=== PATIENT | female | born 1940 | race Caucasian/White ===

== ENCOUNTER 2017-12-08 16:55 | Inpatient (IN) | payer MEDICARE, OTHER ==
[~2017-12-08] VITALS: Ht 172.7 cm; Wt 105.0 kg
[~2017-12-08 16:55] MED LIST: ALENDRONATE SOD70 MG PO; AMLODIPINE BESYL5 MG PO; ATORVASTATIN CA20 MG PO; ELIQUIS PO; FENOFIBRATE145 MG PO; FISH OIL OMEGA1 EACH PO; FLECAINIDE ACE100 MG PO; HYDROCHLOROTHIA25 MG PO; LISINOPRIL10 MG PO; METOPROLOL SUCC50 MG PO; MULTI-VITAMIN1 EACH PO
[2017-12-08] MEDS ORDERED: PHENYLEPHRINE HCL 1% 10 MG/ML VIAL ONE (16:58)
[2017-12-08 17:00] VITALS: BP 167/74
[2017-12-08] MEDS ORDERED: ONDANSETRON HCL INJ 2 MG/ML VIAL IV PRN (17:15)
[2017-12-08] MEDS ORDERED: HYDROCODONE/APAP 10MG-325MG TAB PO PRN (17:15)
[2017-12-08 17:17] VITALS: BP 167/74
[2017-12-08] MEDS ORDERED: KETOROLAC TROMETHAMINE 30 MG/ML VIAL IV PRN (18:00)
[2017-12-08] MEDS: METOPROLOL SUCCINATE 50 MG TAB XL PO SCH (18:30)
[2017-12-08] MEDS: HYDROCODONE/APAP 10MG-325MG TAB PO SCH ×2 (18:30→22:00)
[2017-12-08] MEDS: FLECAINIDE ACETATE 100 MG TAB PO SCH (18:30)
[2017-12-08] MEDS ORDERED: CEFAZOLIN SOD 1 GM/D5W 50ML 100 ML IV ONE (18:45)
[2017-12-08] MEDS ORDERED: CEFAZOLIN SOD 1 GM VIAL IV NR ×2 (18:45→19:00)
[2017-12-08 20:08] VITALS: BP 170/71
[2017-12-08] MEDS: ATORVASTATIN 20 MG TAB PO SCH (21:00)
[2017-12-08] MEDS: SODIUM CHLORIDE 0.9% 1000ML 1,000 ML IV SCH (23:59)
[2017-12-09] VITALS: BP 161/68
[2017-12-09] MEDS: HYDROCODONE/APAP 10MG-325MG TAB PO SCH ×2 (02:00→06:00)
[2017-12-09 04:00] VITALS: BP 169/72
[2017-12-09] MEDS: OMEGA 3 POLYUNSAT FATTY ACIDS 1000 MG SOFTGEL PO SCH (08:14)
[2017-12-09] MEDS: MULTIVITAMINS/MINERALS TAB PO SCH (08:14)
[2017-12-09] MEDS: FENOFIBRATE 145 MG TAB PO SCH (08:14)
[2017-12-09] MEDS: FLECAINIDE ACETATE 100 MG TAB PO SCH ×2 (08:16→17:51)
[2017-12-09] MEDS: METOPROLOL SUCCINATE 50 MG TAB XL PO SCH ×2 (08:35→17:51)
[2017-12-09] MEDS: AMLODIPINE BESYLATE 5 MG TAB PO SCH (08:35)
[2017-12-09] MEDS: LISINOPRIL 10 MG TAB PO SCH (08:35)
[2017-12-09 08:52] VITALS: BP 180/77
--- NOTE | 2017-12-09 08:54 | History and Physical ---
PRIMARY CARE PHYSICIAN: Dr. Ashley Cassidy CONSULTANTS: Dr. Ian Joshua CHIEF COMPLAINT: Status post fall with left femur fracture. HISTORY OF PRESENT ILLNESS: This 77-year-old female now came in with left femur fracture. It appears she had left femur open reduction and internal fixation previously recently in late October with Dr. Ian Joshua. Now, the patient is having recurrent pain to the left hip after she fell. The patient is otherwise stable. She is pending for surgical intervention. PAST MEDICAL HISTORY: Osteoarthritis, osteoporosis, hypertension, cardiac arrhythmia, dyslipidemia. PAST SURGICAL HISTORY: Left hip ORIF in November 29, 2017. SOCIAL HISTORY: The patient does not smoke or use alcohol. No recreational drugs. ALLERGIES: MULTAQ AND NIACIN. HOME MEDICATIONS: List has been reviewed. REVIEW OF SYSTEMS: Left hip pain. PHYSICAL EXAMINATION VITAL SIGNS: Temperature is 98, blood pressure 159/72, pulse rate 68, respirations 18. GENERAL: The patient is not in acute distress. She is awake. HEENT: Normocephalic, atraumatic and anicteric. NECK: Supple grossly. PULMONARY: Clear. CARDIOVASCULAR: Regular rate and rhythm. ABDOMEN: Soft. EXTREMITIES: No cyanosis or edema. NEUROLOGIC: No focal deficit. LABORATORY: Otherwise unremarkable. IMPRESSION 1. Left femur fracture with recurrent fall. 2. Multiple chronic baseline medical problems. PLAN: Surgical intervention today with Dr. Ian Joshua. The patient may need hip replacement. The patient is otherwise stable at this time, awaiting surgery. Job#: [id number]
[2017-12-09] MEDS ORDERED: HYDROCHLOROTHIAZIDE 25 MG TAB PO SCH (09:00)
[2017-12-09] MEDS: SODIUM CHLORIDE 0.9% 1000ML 1,000 ML IV SCH ×3 (09:43→23:49)
[2017-12-09 11:58] VITALS: BP 171/77
[2017-12-09] MEDS ORDERED: BACITRACIN 50,000 UNIT VIAL ONE (11:58)
[2017-12-09] MEDS ORDERED: CEFAZOLIN SOD 2 GM/D5W 50ML 50 ML IV ONE (12:32)
[2017-12-09] MEDS ORDERED: ACETAMINOPHEN 1000 MG/100 ML 100 ML IV ONE (15:23)
[2017-12-09] MEDS ORDERED: ACETAMINOPHEN 1000 MG/100 ML IV PRN (15:30)
[2017-12-09] MEDS ORDERED: HYDROMORPHONE 0.2MG/ML-SOD CHL 30ML PCA SYRINGE IV PRN (15:30)
[2017-12-09] MEDS ORDERED: NALOXONE HCL INJ 0.4 MG/ML AMP IV PRN (15:30)
[2017-12-09] MEDS ORDERED: HYDROMORPHONE 0.2MG/ML-SOD CHL 30ML PCA SYRINGE IV ONE (16:01)
--- NOTE | 2017-12-09 17:05 | Diagnostic Imaging Report ---
PELVIS AP 1-2 VIEWS - 1 view HISTORY: Pain COMPARISON: 11/28/2017 FINDINGS: See impression. IMPRESSION: Status post plate and screw and nail fixation of left femoral head and proximal shaft with expected postoperative changes, marked by soft tissue swelling, minimal emphysema, and skin steph. Intact hardware. Signed by: Dr. Sage Ying MD on 12/09/2017 5:01 PM
--- NOTE | 2017-12-09 17:08 | Diagnostic Imaging Report ---
HIP LEFT ONE VIEW (+/- PELVIS) - 1 view HISTORY: Pain COMPARISON: 11/28/2017 FINDINGS: See impression. IMPRESSION: ORIF of proximal left femoral fracture with plate and screw and nail fixation of left femoral head and proximal shaft. There are expected postoperative changes, marked by soft tissue swelling, minimal emphysema, and skin steph. Intact hardware. Signed by: Dr. Sage Ying MD on 12/09/2017 5:04 PM
[2017-12-09] MEDS ORDERED: FENTANYL CITRATE/PF 100MCG/2 ML INJ ONE (18:11)
[2017-12-09] MEDS ORDERED: MIDAZOLAM HCL 2 MG/2 ML VIAL ONE (18:11)
[2017-12-09 18:12] VITALS: BP 152/69
[2017-12-09] MEDS ORDERED: EPHEDRINE SULFATE INJ 50 MG/10 ML SYR ONE (18:24)
[2017-12-09] MEDS ORDERED: SEVOFLURANE INHAL SOLN 250 ML PEN BTL ONE (18:24)
[2017-12-09] MEDS ORDERED: ONDANSETRON HCL INJ 2 MG/ML VIAL ONE (18:24)
[2017-12-09] MEDS ORDERED: SUCCINYLCHOLINE 200 MG/10 ML SYR ONE (18:24)
[2017-12-09] MEDS ORDERED: PROPOFOL IV EMULSION 10 MG/ML 20 ML VIAL ONE (18:24)
[2017-12-09] MEDS ORDERED: ATROPINE SULFATE 1 MG/ML VIAL ONE (18:24)
[2017-12-09] MEDS ORDERED: GLYCOPYRROLATE INJ 1MG/ 5 ML SYR ONE (18:24)
[2017-12-09] MEDS ORDERED: LIDOCAINE HCL 2% LOCAL INJ 5 ML SDV VIAL INJ ONE (18:24)
[2017-12-09] MEDS ORDERED: DEXAMETHASONE SOD PHOS INJ 4 MG/ML VIAL ONE (18:24)
[2017-12-09 20:00] VITALS: BP 146/65
[2017-12-09] MEDS: ATORVASTATIN 20 MG TAB PO SCH (21:48)
[2017-12-09] MEDS: CEFAZOLIN SOD 1 GM VIAL IV SCH (21:49)
[2017-12-09] MEDS ORDERED: CEFAZOLIN SOD 1 GM/D5W 50ML 50 ML IV SCH (22:00)
[2017-12-10] VITALS (8 sets, daily range): BP systolic 126–156; BP diastolic 58–70
[2017-12-10] MEDS: SODIUM CHLORIDE 0.9% 1000ML 1,000 ML IV SCH (03:30)
[2017-12-10 05:53] LABS: BASOPHILS % 0.1 % (0.0-1.0); HEMATOCRIT 31.4 % (34.2-44.1); HEMOGLOBIN 9.9 g/dL (12.0-16.0); LYMPHOCYTES # (AUTO) 1.8 (1.0-3.2); LYMPHOCYTES % 12.1 % (18.0-39.1); MEAN CORPUSCULAR HEMOGLOBIN 29.5 pg (28-32); MEAN CORPUSCULAR HGB CONC 31.5 g/dL (31-35); MEAN CORPUSCULAR VOLUME 93.5 fL (81-99); MONOCYTES # (AUTO) 1.4 (0.2-0.8); MONOCYTES % 9.8 % (4.4-11.3); NEUTROPHILS # (AUTO) 11.3 (2.1-6.9); NEUTROPHILS % 77.1 % (38.7-80.0); PLATELET COUNT 335 x10e3/uL (140-360); RED BLOOD COUNT 3.36 x10e6/uL (3.6-5.1); RED CELL DISTRIBUTION WIDTH 15.5 % (11.7-14.4)
[2017-12-10 06:09] LABS: ANION GAP 12.2 mmol/L (8-16); BLOOD UREA NITROGEN 12 mg/dL (7-26); BUN/CREATININE RATIO 18 (6-25); CALCIUM 8.5 mg/dL (8.4-10.2); CARBON DIOXIDE 23 mmol/L (22-29); CHLORIDE 107 mmol/L (98-107); CREATININE, SERUM 0.66 mg/dL (0.57-1.11); EST GLOMERULAR FILTRATION RATE > 60 ML/MIN (60-); GLUCOSE 165 mg/dL (74-118); POTASSIUM 4.2 mmol/L (3.5-5.1); SODIUM 138 mmol/L (136-145)
[2017-12-10] MEDS: RIVAROXABAN 10 MG TABLET PO SCH (06:20)
[2017-12-10] MEDS: CEFAZOLIN SOD 1 GM VIAL IV SCH ×2 (06:20→13:25)
[2017-12-10] MEDS: MULTIVITAMINS/MINERALS TAB PO SCH (08:59)
[2017-12-10] MEDS: LISINOPRIL 10 MG TAB PO SCH (08:59)
[2017-12-10] MEDS: FLECAINIDE ACETATE 100 MG TAB PO SCH ×2 (08:59→16:23)
[2017-12-10] MEDS: AMLODIPINE BESYLATE 5 MG TAB PO SCH (08:59)
[2017-12-10] MEDS: OMEGA 3 POLYUNSAT FATTY ACIDS 1000 MG SOFTGEL PO SCH (08:59)
[2017-12-10] MEDS: FENOFIBRATE 145 MG TAB PO SCH (09:00)
[2017-12-10] MEDS: METOPROLOL SUCCINATE 50 MG TAB XL PO SCH ×2 (09:00→16:23)
[2017-12-10] MEDS ORDERED: HYDROMORPHONE 1MG/1ML INJ IV PRN (09:00)
[2017-12-10] MEDS ORDERED: HYDROCODONE/APAP 7.5MG-325MG 1 EA TAB PO PRN (09:00)
[2017-12-10] MEDS: SENNOSIDES 8.6 MG TAB PO SCH ×2 (09:11→16:23)
[2017-12-10] MEDS: HYDROCODONE/APAP 10MG-325MG TAB PO PRN ×2 (13:21→17:36)
--- NOTE | 2017-12-10 18:47 | Operative Report ---
DATE OF PROCEDURE: December 09, 2017 PREOPERATIVE DIAGNOSIS: Left subtrochanteric femur fracture. POSTOPERATIVE DIAGNOSIS: Left subtrochanteric femur fracture. PROCEDURES PERFORMED: Patient underwent a 1. Removal of hardware from the left hip. 2. Open reduction and internal fixation of a left subtrochanteric femur fracture. 3. Allograft bone grafting of a left subtrochanteric femur fracture. MEDICAL ACCOUNTING CLERK: None. ANESTHESIA: General endotracheal intubation anesthesia. IV FLUIDS: As per the anesthesia record. COMPLICATIONS: None. DESCRIPTION OF PROCEDURE: Ms. Garcia was taken to the operating room and placed on the fracture table. Following induction of general anesthesia as well as endotracheal intubation, the patient's left lower extremity was examined under anesthesia. She was found to have a well-healed incision over the left hip joint. The patient's left lower extremity was placed in well-padded longitudinal traction, and the right lower extremity was placed in a well-padded lithotomy position. Fluoroscopic evaluation of the hip joint demonstrated a fracture that began in the intertrochanteric region of the left hip and extended into the subtrochanteric region of the left hip. Patient's lower extremity was prepped and draped in standard surgical fashion. The case was begun by extending the previous surgical incision both proximally and distally. This incision was carried through the skin only. Blunt dissection was used to deepen the incision to the level of the tensor fascia elisabet. The tensor fascia elisabet was then incised in line with the skin incision. The underlying vastus lateralis was elevated anteriorly. This exposed the patient's fracture. The patient's hardware was removed. This included three 7.3 cannulated screws with the washers. The fracture site was then copiously irrigated. A guide pin from the 95-degree collar screw and side plate was placed over the tip of the trochanter and advanced from lateral to medial through the neck into the head of the femur. The position of the screw was checked fluoroscopically and found to be appropriate. Measurements were taken, and a reamer was used to create a channel for the implant. The implant was then inserted without difficulty. The plate was affixed to the patient's femur, and the fracture was held in a reduced position while a Neola clamp was used to provisionally hold the plate to the femur and maintain alignment of the fracture. Fluoroscopic evaluation of the patient's injury demonstrated comminution at the level of the patient's fracture site but otherwise acceptable reduction of the patient's injury. The plate was found to be slightly obliquely oriented on the femur. The plate was affixed to the femur, and compression was placed across the patient's fracture site. This resulted in excellent compression at the level of the injury and, under direct visualization, appropriate alignment of the injury. Fluoroscopic evaluation again demonstrated stabilization of the injury with a slight oblique positioning of the plate. The wound was copiously irrigated. Allograft bone graft was placed about the fracture site. The wound was then closed in a multilayer fashion. Sterile dressings were then applied, and the patient was then awakened and taken to the postanesthesia care unit in stable condition. Job#: [id number] EV
[2017-12-10] MEDS: ATORVASTATIN 20 MG TAB PO SCH (20:59)
[2017-12-11] VITALS: BP 164/72
[2017-12-11] MEDS: ACETAMINOPHEN 325 MG TAB PO PRN ×2 (02:06→18:27)
[2017-12-11 04:00] VITALS: BP 146/65
[2017-12-11] MEDS: RIVAROXABAN 10 MG TABLET PO SCH (05:03)
[2017-12-11 05:26] LABS: BASOPHILS % 0.2 % (0.0-1.0); EOSINOPHILS # (AUTO) 0.1 (0.0-0.4); HEMATOCRIT 27.1 % (34.2-44.1); HEMOGLOBIN 8.8 g/dL (12.0-16.0); LYMPHOCYTES # (AUTO) 2.1 (1.0-3.2); LYMPHOCYTES % 19.6 % (18.0-39.1); MEAN CORPUSCULAR HGB CONC 32.5 g/dL (31-35); MEAN CORPUSCULAR VOLUME 92.5 fL (81-99); MONOCYTES # (AUTO) 1.1 (0.2-0.8); MONOCYTES % 10.3 % (4.4-11.3); NEUTROPHILS # (AUTO) 7.3 (2.1-6.9); NEUTROPHILS % 68.2 % (38.7-80.0); PLATELET COUNT 269 x10e3/uL (140-360); RED BLOOD COUNT 2.93 x10e6/uL (3.6-5.1); RED CELL DISTRIBUTION WIDTH 15.6 % (11.7-14.4)
[2017-12-11 05:42] LABS: ANION GAP 9.5 mmol/L (8-16); BLOOD UREA NITROGEN 14 mg/dL (7-26); BUN/CREATININE RATIO 25 (6-25); CALCIUM 8.6 mg/dL (8.4-10.2); CARBON DIOXIDE 23 mmol/L (22-29); CHLORIDE 106 mmol/L (98-107); CREATININE, SERUM 0.57 mg/dL (0.57-1.11); EST GLOMERULAR FILTRATION RATE > 60 ML/MIN (60-); GLUCOSE 133 mg/dL (74-118); POTASSIUM 3.5 mmol/L (3.5-5.1); SODIUM 135 mmol/L (136-145)
[2017-12-11 08:00] VITALS: BP 146/65
[2017-12-11 08:16] VITALS: BP 137/65
[2017-12-11] MEDS ORDERED: KETOROLAC TROMETHAMINE 30 MG/ML VIAL IV PRN (08:45)
[2017-12-11] MEDS ORDERED: POTASSIUM CHLORIDE 10 MEQ TABCR PO ONE (08:45)
[2017-12-11] MEDS: OMEGA 3 POLYUNSAT FATTY ACIDS 1000 MG SOFTGEL PO SCH (09:01)
[2017-12-11] MEDS: FLECAINIDE ACETATE 100 MG TAB PO SCH ×2 (09:01→17:48)
[2017-12-11] MEDS: AMLODIPINE BESYLATE 5 MG TAB PO SCH (09:01)
[2017-12-11] MEDS: SENNOSIDES 8.6 MG TAB PO SCH ×4 (09:01→17:00)
[2017-12-11] MEDS: MULTIVITAMINS/MINERALS TAB PO SCH (09:01)
[2017-12-11] MEDS: LISINOPRIL 10 MG TAB PO SCH (09:01)
[2017-12-11] MEDS: IRON-VITAMIN-MINERAL CAPSULE PO SCH ×2 (09:01→17:45)
[2017-12-11] MEDS: METOPROLOL SUCCINATE 50 MG TAB XL PO SCH ×2 (09:02→17:43)
[2017-12-11] MEDS: FENOFIBRATE 145 MG TAB PO SCH (09:02)
[2017-12-11 11:38] VITALS: BP 137/63
[2017-12-11 16:11] VITALS: BP 128/62
[2017-12-11] MEDS: HYDROCODONE/APAP 10MG-325MG TAB PO PRN (16:36)
[2017-12-12] MEDS ORDERED: ALENDRONATE SODIUM 70 MG TAB PO SCH (06:30)
== END 2017-12-11 18:45 | DRG 482 ==
LOC: MED/SURG 16:55
PROVIDERS: ADMIT Internal Medicine; ATTEND Internal Medicine
PROC: 0SPB04Z Removal of Internal Fixation Device from Left Hip Joint, Open Approach (ICD-10-PCS; 2017-12-09)
PROC: 0QU70KZ Supplement Left Upper Femur with Nonautologous Tissue Substitute, Open Approach (ICD-10-PCS; 2017-12-09)
PROC: 0QS704Z Reposition Left Upper Femur with Internal Fixation Device, Open Approach (ICD-10-PCS; principal; 2017-12-09 12:30)
DX: S72.22XA Displaced subtrochanteric fracture of left femur, initial encounter for closed fracture (principal); W19.XXXA Unspecified fall, initial encounter; Z91.81 History of falling; Y93.9 Activity, unspecified; Y92.9 Unspecified place or not applicable; M81.0 Age-related osteoporosis without current pathological fracture; I10 Essential (primary) hypertension; E78.5 Hyperlipidemia, unspecified; M19.90 Unspecified osteoarthritis, unspecified site
CPT/HCPCS: 36415; 72170; 76001; 80048; 85025; 86850; 86900; 97139; C1713; C1762; J0461; J0690; J1100; J1170; J1885; J2001; J2250; J2370; J2405; J7030

== ENCOUNTER 2020-12-13 16:27 | Emergency (ER) | payer OTHER ==
[~2020-12-13] VITALS: Ht 172.7 cm; Wt 104.8 kg
[2020-12-13] MEDS ORDERED: ONDANSETRON ODT4 MG PO (16:58)
[2020-12-13] MEDS ORDERED: SODIUM CHLORIDE 0.9% 500ML 500 ML IV ONE (17:00)
[2020-12-13 17:01] LABS: BASOPHILS % 0.4 % (0.0-1.0); EOSINOPHILS # (AUTO) 0.4 (0.0-0.4); EOSINOPHILS % 3.5 % (0.0-6.0); HEMATOCRIT 43.7 % (34.2-44.1); HEMOGLOBIN 14.2 g/dL (12.0-16.0); LYMPHOCYTES # (AUTO) 0.8 (1.0-3.2); LYMPHOCYTES % 7.5 % (18.0-39.1); MEAN CORPUSCULAR HEMOGLOBIN 29.8 pg (28-32); MEAN CORPUSCULAR HGB CONC 32.5 g/dL (31-35); MEAN CORPUSCULAR VOLUME 91.6 fL (81-99); MONOCYTES # (AUTO) 0.6 (0.2-0.8); MONOCYTES % 6.4 % (4.4-11.3); NEUTROPHILS # (AUTO) 8.1 (2.1-6.9); NEUTROPHILS % 80.6 % (38.7-80.0); PLATELET COUNT 213 x10e3/uL (140-360); RED BLOOD COUNT 4.77 x10e6/uL (3.6-5.1); RED CELL DISTRIBUTION WIDTH 14.8 % (11.7-14.4)
[2020-12-13 17:16] LABS: ALBUMIN/GLOBULIN RATIO 0.8 (0.8-2.0); ANION GAP 17.1 mmol/L (8-16); CALCIUM 10.5 mg/dL (8.4-10.2); CREATININE, SERUM 1.19 mg/dL (0.57-1.11); POTASSIUM 3.1 mmol/L (3.5-5.1)
[2020-12-13 18:26] LABS: CLARITY,URINE SL CLOUDY (CLEAR); COLOR,URINE AMBER (YELLOW); KETONES,URINE TRACE (NEGATIVE); LEUKOCYTE ESTERASE ,URINE NEGATIVE (NEGATIVE); NITRITE,URINE NEGATIVE (NEGATIVE); PROTEIN,URINE DIPSTICK NEGATIVE (NEGATIVE); URINE UROBILINOGEN 1 mg/dL (0.2 - 1)
[2020-12-13 18:40] LABS: BACTERIA,URINE FEW /HPF; EPITHELIAL CELLS,URINE MANY /LPF
[2020-12-14 02:03] VITALS: BP 145/85
== END 2020-12-13 23:00 | disposition home or self-care (01) ==
LOC: ER 16:55
DX: R55 Syncope and collapse (principal); I10 Essential (primary) hypertension; I48.91 Unspecified atrial fibrillation; E78.5 Hyperlipidemia, unspecified; Z88.8 Allergy status to other drugs, medicaments and biological substances; Z20.822 Contact with and (suspected) exposure to COVID-19
CPT/HCPCS: 36415; 70450; 71045; 80053; 81001; 84484; 85025; 93005; 99285; J7040; U0002